=== PATIENT | male | born 2005 | race Two or more races ===

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

== ENCOUNTER 2025-03-25 04:55 | Emergency (ER) | payer SELFPAY ==
[2025-03-25 06:05] VITALS: BP 118/68; PULSE 79
== END 2025-03-25 06:04 | disposition home or self-care (01) ==
LOC: JD.ED 04:55
DX: J20.9 Acute bronchitis, unspecified (principal); J45.909 Unspecified asthma, uncomplicated; F17.210 Nicotine dependence, cigarettes, uncomplicated; Z79.899 Other long term (current) drug therapy
CPT/HCPCS: 99284; J7512

== ENCOUNTER 2025-06-18 14:52 | Emergency (ER) | payer BC ==
[2025-06-18 15:55] LABS: BASOPHILS ABSOLUTE AUTO 0.0 K/mm3 (0.0-0.2); BASOPHILS PERCENT AUTO 0.2 % (0.0-1.0); EOSINOPHILS ABSOLUTE AUTO 0.1 K/mm3 (0.0-0.4); EOSINOPHILS PERCENT AUTO 1.3 % (0.0-6.0); IMMATURE GRAN ABSOLUTE AUTO 0.03 K/mm3 (0.00-0.05); IMMATURE GRAN PERCENT AUTO 0.3 % (0.0-0.4); LYMPHOCYTES ABSOLUTE AUTO 0.6 K/mm3 (1.0-4.8); LYMPHOCYTES PERCENT AUTO 6.3 % (24.0-44.0); MEAN PLATELET VOLUME 9.5 fl (9.4-12.4); MONOCYTES ABSOLUTE AUTO 1.2 K/mm3 (0.0-0.8); MONOCYTES PERCENT AUTO 13.2 % (0.0-8.0); NEUTROPHILS ABSOLUTE AUTO 6.9 K/mm3 (1.8-7.7); NEUTROPHILS PERCENT AUTO 78.7 % (41.0-71.0); NRBC ABSOLUTE 0.00 (0.00-0.02); NRBC PERCENT 0.0 % (0.0-0.2); PLATELET COUNT,PLT 209 K/mm3 (150-400); RED BLOOD CELL COUNT 5.20 M/mm3 (4.52-5.90); WHITE BLOOD CELL COUNT,WBC 8.80 K/mm3 (3.9-11.3)
[2025-06-18 16:17] LABS: A/G RATIO 0.9 (1-2); ALANINE AMINOTRANSFERASE,ALT 25.0 U/L (16-63); ASPARTATE AMNIOTRANSFERASE,AST 18.0 U/L (15-37); BILIRUBIN TOTAL 0.5 mg/dL (0.2-1.0); BLOOD UREA NITROGEN,BUN 11.0 mg/dL (7-18); CARBON DIOXIDE,CO2 25.0 mEq/L (21-32); CHLORIDE,CL 101.0 mEq/L (98-107); CREATININE 1.0 mg/dL (0.7-1.3); EST CRCL DRUG DOSING (CG) 110.17 mL/min; ESTIMATED GFR 111.0 mL/min (>60); GLUCOSE RANDOM 110.0 mg/dL (70-99); POTASSIUM,K 3.5 mEq/L (3.5-5.1); PROTEIN TOTAL,TP 7.5 g/dl (6.4-8.2); SODIUM,NA 136.0 mEq/L (136-145)
[2025-06-18 17:35] VITALS: BP 112/71; PULSE 114
== END 2025-06-18 17:11 | disposition home or self-care (01) ==
LOC: JD.ED 14:52
DX: J10.1 Influenza due to other identified influenza virus with other respiratory manifestations (principal); F17.200 Nicotine dependence, unspecified, uncomplicated
CPT/HCPCS: 36415; 71046; 80053; 85025; 87428; 99284; A9270